=== PATIENT | female | born 1990 | race Caucasian/White ===

== ENCOUNTER 2017-08-08 14:10 | Inpatient (IN) | payer MEDICAID ==
--- NOTE | 2017-08-08 14:33 | EDPHY ---
H & P Time Seen by Provider: 08/08/17 14:26 HPI/ROS: CHIEF COMPLAINT: Right-sided abdominal pain HISTORY OF PRESENT ILLNESS: This patient is a 27 year old female with history of PCOS and endometriosis complaining of right sided abdominal pain. She woke at 3am this morning with severe supraumbilical pain radiating towards the right. She tried to have a bowel movement with no relief. She had severe pain lasting 2-3 hours. She was able to fall asleep following this. On waking, she had generalized abdominal soreness. Her pain increases while walking. It does not radiate into her back. She endorses nausea, no vomiting. Last BM was yesterday evening at 6pm. No dysuria or hematuria. She denies any abnormal activities yesterday. She has had a cholecystectomy in the past. Her appendix remains. Mirena IUD in place, no recent menstrual periods. She has history of polycystic ovary syndrome and endometriosis but the pain is not similar to this. She has also had acid reflux since her cholecystectomy and takes omeprazole prn, but her discomfort is not similar to this either. No fever, chest pain, shortness of breath, or other associated symptoms. REVIEW OF SYSTEMS: A 10 point review of systems was performed and is negative with the exception of the elements mentioned in the history of present illness. Past Medical/Surgical History: Endometriosis Polycystic ovary syndrome GERD (Omeprazole prn) Mirena IUD in place. 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 Lives in [place]. Single. Smoking Status: Light smoker Physical Exam: General Appearance: Alert, pleasant Eyes: Pupils equal and round, no conjunctival pallor or injection ENT, Mouth: Mucous membranes moist Neck: Normal inspection Respiratory: Lungs are clear to auscultation Cardiovascular: Regular rate and rhythm Gastrointestinal: Right upper greater than lower quadrant tenderness. No adnexal tenderness. Abdomen is soft. Neurological: A&O, nonfocal exam Skin: Warm and dry, no rash Extremities: Nontender, no pedal edema Psychiatric: Mood and affect normal Constitutional: Initial Vital Signs Temperature (C) 36.5 C 08/08/17 14:14 Heart Rate 105 H 08/08/17 14:14 Respiratory Rate 17 08/08/17 14:14 Blood Pressure 153/110 H 08/08/17 14:14 O2 Sat (%) 95 08/08/17 14:14 O2 Delivery Mode Room Air Allergies/Adverse Reactions: No Known Allergies Allergy (Verified 08/08/17 14:14) Home Medications: Medication Instructions Recorded Omeprazole 20 mg PO DAILY 08/08/17 Acetaminophen [Tylenol ES 500 mg 1,000 mg PO Q8 tab 08/09/17 (*)] HYDROmorphone HCL [Dilaudid 2 mg 2 mg PO Q4H PRN #15 tab 08/09/17 (*)] Ketorolac Tromethamine 10 mg PO Q6H #16 tab 08/09/17 Medical Decision Making - Diagnostics Imaging Results: Abdomen CT 08/08/17 15:19 Impression: 1. Nonspecific thickening of the diameter of the appendix up to 12 mm with central gas and no evidence of periappendiceal inflammatory changes. Although the diameter is enlarged, there is no evidence of appendiceal edema or periappendiceal inflammatory changes to suggest appendicitis. Consider surgical consult. 2. Prior cholecystectomy without biliary obstruction. 3. Hepatic granulomata. 4. No bowel obstruction, urinary tract obstruction, fluid collections, or adnexal masses. Findings and recommendations discussed with Emergency Department physician, Daysi Herrera at 1604 hour, 08/08/2017. Final report concurs with initial preliminary interpretation. Cosign: Dr. Marcelo Dalton. Imaging: Discussed imaging studies w/ physical sciences instructor Radiologist ED Course/Re-evaluation: 27 y/o female presents with right-sided abdominal pain onset this morning around 3am, 11 hours prior to arrival. Exam reveals right upper greater than lower quadrant tenderness, no adnexal tenderness. Plan for labs including CBC, chemistries, liver, lipase, BHCG. Plan for CT abdomen/pelvis. IV established. Plan to administer 6mg IV morphine, 4mg IV Zofran, and 1L IV NS for symptom relief. 16:[address] Lundy, radiologist. CT questionable for appendicitis. Reassessed patient. Discussed imaging results. Pt continues have right sided abd pain. She is feeling better following morphine administration. She continues to have a pressure sensation but less intense discomfort. Abd: RUQ/RLQ tenderness. Plan to consult with Dr. Tloentino, general surgeon artist color separation. 16:[address] Tolentino, general surgeon. 16:30 Dr. Tolentino at bedside. 17:[address] Tolentino, who has assessed the patient. 17:43 Discussion admission vs f/u 12 hrs recheck. The patient prefers to be admitted for further observation. Differential Diagnosis: Differential diagnosis includes though it is not limited to appendicitis, cholecystitis, diverticulitis, pyelonephritis, bowel perforation, small bowel obstruction. - Data Points Laboratory Results: Laboratory Results 08/09/17 04:15 08/09/17 04:15 Medications Given: Discontinued Medications Acetaminophen (Tylenol) 1,000 mg PO Q8 VENKAT Stop: 02/04/18 21:59 Last Admin: 08/10/17 06:03 Dose: 1,000 mg Cefazolin Sodium (Ancef Syringe) Confirm Administered Dose 2 gm .ROUTE .STK-MED ONE Stop: 08/09/17 11:42 Last Admin: 08/09/17 13:14 Dose: 1 gm Ertapenem (Invanz) 1 gm IVP ONCALL ONE PRN Reason: Protocol Stop: 08/09/17 11:12 Last Admin: 08/09/17 14:22 Dose: Not Given Fentanyl (Sublimaze) 25 - 100 mcg IVP Q5M PRN PRN Reason: PACU, IMMEDIATE Pain control Stop: 08/09/17 14:45 Last Admin: 08/09/17 14:56 Dose: 50 mcg Heparin Sodium (Porcine) (Heparin Sc Injection) Confirm Administered Dose 10, 000 unit .ROUTE .STK-MED ONE Stop: 08/09/17 11:41 Last Admin: 08/09/17 13:14 Dose: 5,000 unit Hydromorphone HCl (Dilaudid) 0.2 - 0.4 mg IVP Q1HR PRN PRN Reason: Pain, Severe Unable to Take PO Stop: 08/18/17 23:43 Last Admin: 08/09/17 18:39 Dose: 0.2 mg Hydromorphone HCl (Dilaudid) 0.1 - 0.4 mg IVP Q10M PRN PRN Reason: PACU, PAIN Stop: 08/09/17 14:45 Last Admin: 08/09/17 15:29 Dose: 0.2 mg Hydromorphone HCl (Dilaudid) 2 mg PO Q4H PRN PRN Reason: PAIN, MODERATE Stop: 08/19/17 19:34 Last Admin: 08/10/17 08:28 Dose: 2 mg Sodium Chloride (Ns) 1,000 mls @ 0 mls/hr IV ONCE ONE; Wide Open PRN Reason: Protocol Stop: 08/08/17 15:30 Last Admin: 08/08/17 15:44 Dose: 1,000 mls Sodium Chloride (Ns) 1,000 mls @ 100 mls/hr IV CONT VENKAT Stop: 08/09/17 17:59 Last Admin: 08/08/17 20:02 Dose: 1,000 mls Lactated Ringer's (Lr) 1,000 mls @ 0 mls/hr IV ONCE ONE PRN Reason: Per Protocol Stop: 08/09/17 12:14 Last Admin: 08/09/17 16:00 Dose: Not Given Influenza Virus Vaccine Quadrival (Fluarix Quad [id number]) 0.5 ml IM .ONCE ONE Stop: 08/09/17 16:31 Last Admin: 08/09/17 18:31 Dose: 0.5 ml Ketorolac Tromethamine (Toradol) 30 mg IVP Q6 VENKAT Stop: 08/13/17 17:59 Last Admin: 08/10/17 04:00 Dose: 30 mg Midazolam HCl (Versed) 2 mg IVP ONCALL ONE Stop: 08/09/17 12:57 Last Admin: 08/09/17 13:10 Dose: 2 mg Morphine Sulfate (Morphine) 6 mg IVP EDNOW ONE Stop: 08/08/17 15:20 Last Admin: 08/08/17 18:40 Dose: 6 mg Ondansetron HCl (Zofran) 4 mg IVP EDNOW ONE Stop: 08/08/17 15:20 Last Admin: 08/08/17 15:44 Dose: 4 mg Ondansetron HCl (Zofran) 4 mg IVP Q4HRS PRN PRN Reason: Nausea/Vomiting, Can't Take PO Stop: 02/04/18 17:46 Last Admin: 08/08/17 22:33 Dose: 4 mg Pantoprazole Sodium (Protonix) 40 mg PO DAILY [facility] Stop: 02/05/18 08:59 Last Admin: 08/10/17 08:28 Dose: 40 mg Departure - Departure Disposition: [facility] Inpatient Acute Clinical Impression: Abdominal pain Qualifiers: Abdominal location: right upper quadrant Qualified Code(s): R10.11 - Right upper quadrant pain Condition: Fair Report Scribed for: Daysi Herrera Report Scribed by: Euegnia Blanc Date of Report: 08/08/17 Time of Report: 14:33 Physician Review and Approval Statement: 08/08/17 14:33 Portions of this note were transcribed by a biomedical engineering internship. I personally performed a history, physical exam, medical decision making, and confirmed accuracy of information the transcribed note.
[2017-08-08 15:05] LABS: PLATELET COUNT 249 10^3/uL (150-400)
[2017-08-08] MEDS ORDERED: ONDANSETRON 4 MG/2 ML VIAL IVP ONE (15:19)
[2017-08-08] MEDS ORDERED: IOPAMIDOL (ISOVUE-300) 100 ML BTL ONE (15:27)
[2017-08-08] MEDS ORDERED: NS 1,000 ML IV ONE (15:29)
[2017-08-08] MEDS ORDERED: ONDANSETRON 4 MG/2 ML VIAL IVP PRN (17:47)
[2017-08-08] MEDS ORDERED: NS 1,000 ML IV SCH (18:00)
--- NOTE | 2017-08-08 18:34 | GHP ---
[f rep st] PREOP HISTORY AND PHYSICAL DATE OF ADMISSION: 08/08/2017 ADMITTING DIAGNOSES: 1. Abdominal pain. 2. Mesenteric adenitis. 3. Appendicolith. 4. Thickened colonic wall. HISTORY: The patient is a 27-year-old white female who was in her usual state of good health when aniyah sims went to bed last night at 10:30. At 3 a.m., she awoke with a sharp, shooting pain just above her u mbilicus. This lasted for approximately 2-3 hours. She then was able to go to sleep. When she woke up this morning, she complained that her whole abdomen was sore, as if she had done multiple sit-ups . The abdominal discomfort then went from diffuse to right lower quadrant. She did have nausea and did not have breakfast. Her last bowel movement was at 5:30 last night. She generally moves her bow els twice a day. She has had no stool since that time. She has chronic allergies, but no true recen t upper respiratory tract infection. She chronically has diarrhea on and off. She has not had any t ravel outside the [place] in the last 6 months or antibiotic use. There is no family or person al history of inflammatory bowel disease. PAST MEDICAL HISTORY: She smokes approximately a quarter to a half-a-pack cigarettes a day. She dri nks approximately 2 bottles of wine per week. ALLERGIES: She has no known drug allergies. MEDICATIONS: She takes Prilosec 20 mg daily for reflux. PAST SURGICAL HISTORY: She has had a cholecystectomy. There is no history of rheumatic fever, tuberculosis, hepatitis, or transfusions. REVIEW OF SYSTEMS: She has hayfever on a year-round basis. She is known to have an IUD in place. S he does not know when her last menstrual cycle was. Review of systems otherwise quite negative. The re are no limits on her activities. No history of steroid use. PHYSICAL EXAMINATION: GENERAL: She is awake and alert, sitting up, speaking to me without obvious p ain. LYMPH NODES: There is no cervical, supraclavicular, axillary or inguinal lymphadenopathy. JEFFREY NT: Her skull is normocephalic and atraumatic. GENERAL: She is alert and oriented to person, place , and time. NECK: I do not appreciate any carotid bruits or thyroid enlargement. BACK: Is unremar kable. LUNGS: Clear to auscultation. CHEST: Her chest is stable to AP and lateral compression. C ARDIAC: Shows S1, S2 to be normal with no split of S2, without murmurs, rubs, or gallops. ABDOMEN: She is tender with cough at a 4 on a scale of 1-10 in the right midabdomen. Psoas and obturator sig ns are negative. She has normoactive bowel sounds. Her left upper quadrant is 1 on a scale of 1-10, left midabdomen is 1, left lower quadrant is 1, epigastrium is 1, periumbilical area is 1, suprapubi c area is 1, right upper quadrant is 2, over the right iliac crest it is 2-3, right midabdomen it is 4, right lower quadrant is 1. LABORATORY DATA: Her white blood count is 7.8, with 76% neutrophils. Hematocrit is 47.5, platelets are 249. Her AST is 74 and ALT is 120. Her CAT scan does show some mesenteric adenitis. It does show what appears to be an appendicolith. There is no periappendiceal stranding or wall thickening. There is no fluid in the pelvis. An IUD i s in place. The colon is generally collapsed and the wall appears to be somewhat thickened. IMPRESSION: Abdominal pain, etiology unclear. I am unsure if this is an intermittent appendiceal blockage because of the appendicolith, or whether this is the mesenteric adenitis, or whether this is a low-grade inflammatory bowel process, or if thi s is a chronic enteritis. I will admit to the hospital for observation, hydration, and pain control. Followup laboratories will be obtained in the morning. /[id number]/MODL
[2017-08-08] MEDS: KETOROLAC 30 MG/1 ML SDV IVP SCH (20:03)
[2017-08-08] MEDS: ACETAMINOPHEN 500 MG TAB PO SCH (23:45)
[2017-08-08] MEDS: HYDROmorphONE/DILAUDID 1 MG/ML INJ IVP PRN (23:51)
[2017-08-09] MEDS: KETOROLAC 30 MG/1 ML SDV IVP SCH ×4 (02:04→21:58)
[2017-08-09] MEDS: HYDROmorphONE/DILAUDID 1 MG/ML INJ IVP PRN ×7 (04:05→18:39)
[2017-08-09 04:33] LABS: PLATELET COUNT 186 10^3/uL (150-400)
[2017-08-09] MEDS: ACETAMINOPHEN 500 MG TAB PO SCH ×3 (07:40→21:58)
[2017-08-09] MEDS: PANTOPRAZOLE SODIUM 40 MG TAB PO SCH (07:40)
[2017-08-09] MEDS ORDERED: NON-FORMULARY NEW DRUG (Omeprazole [Omeprazole] 20 MG) PO SCH (09:00)
[2017-08-09] MEDS ORDERED: ERTAPENEM 1 GM VIAL IVP ONE (11:11)
--- NOTE | 2017-08-09 11:15 | TRAUMAPN ---
Assessment/Plan: PAD#1 08/09/2017 Assessment: Pain continues. Stool evaluation negative.WBC stable. A febrile. Suspect pain is due to partial appendiceal obstruction due to appendicolith. Plan: Because of appendicolith will plan laparoscopic appendectomy to eliminate chance of progression to acute appendicitis Objective: Vital Signs Temp Pulse Resp BP Pulse Ox 36.6 C 54 L 14 103/72 95 08/09/17 07:47 08/09/17 07:47 08/09/17 07:47 08/09/17 07:47 08/09/17 07:47 Microbiology 08/09/17 08:50 Gastrointestinal Tract Panel (PCR) - Final Stool No Organism Detected Laboratory Results 08/09/17 04:15 08/09/17 04:15 08/08/17 08/09/17 08/10/17 05:59 05:59 05:59 Intake Total 1999 Balance 1999 Physical Exam - Physical Exam General Appearance: WD/WN, alert, mild distress Respiratory: chest non-tender, lungs clear, normal breath sounds Cardiac/Chest: regular rate, rhythm Abdomen: other (Hypoactive bowel sounds, Pain 8/10 with cough in right mid abdomen and with palpation) Pelvic Exam: deferred Rectal: deferred Back: Normal inspection Skin: normal color, warm/dry Neuro/Psych: no motor/sensory deficits, alert, normal mood/affect Time Spent w/Patient (minutes): 25
[2017-08-09] MEDS ORDERED: HEPARIN 5,000 UNIT/0.5 ML SYR ONE (11:40)
[2017-08-09] MEDS ORDERED: ceFAZolin 1 GM/5 ML SYR ONE (11:41)
[2017-08-09] MEDS ORDERED: LR 1,000 ML IV ONE (12:13)
[2017-08-09] MEDS ORDERED: fentaNYL 250 MCG/5 ML INJ ONE (12:53)
[2017-08-09] MEDS ORDERED: PROPOFOL 200 MG/20 ML VIAL ONE ×2 (12:53)
[2017-08-09] MEDS ORDERED: LIDOCAINE 2% 5 ML SDV ONE (12:55)
[2017-08-09] MEDS ORDERED: MIDAZOLAM 2 MG/2 ML VIAL IVP ONE (12:56)
--- NOTE | 2017-08-09 12:57 | PDANEPAE ---
ANE History of Present Illness acute appendicitis ANE Past Medical History - Cardiovascular History Hx Hypertension: No Hx Arrhythmias: No Hx Chest Pain: No Hx Coronary Artery / Peripheral Vascular Disease: No Hx CHF / Valvular Disease: No Hx Palpitations: No - Pulmonary History Hx COPD: No Hx Asthma/Reactive Airway Disease: No Hx Recent Upper Respiratory Infection: No Hx Oxygen in Use at Home: No Hx Sleep Apnea: No Sleep Apnea Screening Result - Last Documented: Negative Pulmonary History Comment: DENIES SOB W STAIRS - Neurologic History Hx Cerebrovascular Accident: No Hx Seizures: No Hx Dementia: No - Endocrine History Hx Diabetes: No Hypothyroid: No Hyperthyroid: No Obesity: yes - Renal History Hx Renal Disorders: No - Liver History Hx Hepatic Disorders: No - Neurological & Psychiatric Hx Hx Neurological and Psychiatric Disorders: Yes Neurological / Psychiatric History Comment: ANXIETY - Cancer History Hx Cancer: No - Congenital Disorder History Hx Congenital Disorders: No - GI History GERD: mild Hx Gastrointestinal Disorders: No - Other Health History Other Health History: NA - Chronic Pain History Chronic Pain: Yes - Surgical History Prior Surgeries: NEVER HAD ANE Review of Systems Review of systems is: negative Review of Systems: - Exercise capacity Exercise capacity: >=4 METS ANE Patient History - Allergies Allergies/Adverse Reactions: No Known Allergies Allergy (Verified 08/08/17 14:14) - Home Medications Home medications: home medication list seen and reviewed Home Medications: Omeprazole 20 mg PO DAILY 08/08/17 [Last Taken 08/08/17] - NPO status NPO Since - Liquids (Date): 08/08/17 NPO Since - Liquids (Time): 09:00 NPO Since - Solids (Date): 08/07/17 NPO Since - Solids (Time): 19:00 - Anes Hx Anes Hx: no prior problems - Smoking Hx Smoking Status: Light smoker - Family Anes Hx Family Hx Anesthesia Complications: NONE ANE Labs/Vital Signs - Labs Result Diagrams: 08/09/17 04:15 08/09/17 04:15 - Vital Signs Blood Pressure: 116/77 Heart Rate: 63 Respiratory Rate: 14 O2 Sat (%): 95 Height: 165.1 cm Weight: 90.718 kg ANE Physical Exam - Airway Neck exam: FROM Mallampati Score: Class 1 Mouth exam: normal dental/mouth exam - Pulmonary Pulmonary: no respiratory distress - Cardiovascular Cardiovascular: regular rate and rhythym - ASA Status ASA Status: II ANE Anesthesia Plan Anesthesia Plan: general endotracheal anesthesia
[2017-08-09] MEDS ORDERED: ROCURONIUM 100 MG/10 ML VIAL ONE (12:59)
[2017-08-09] MEDS ORDERED: ONDANSETRON 4 MG/2 ML VIAL IVP PRN (13:45)
[2017-08-09] MEDS ORDERED: OXYCODONE/APAP 5/325 TAB PO PRN (13:45)
[2017-08-09] MEDS ORDERED: LR 500 ML IV PRN (13:45)
[2017-08-09] MEDS ORDERED: METOCLOPRAMIDE 10 MG/2 ML VIAL IVP PRN (13:45)
[2017-08-09] MEDS ORDERED: HYDROCODONE/APAP 5/325 TAB PO PRN (13:45)
[2017-08-09] MEDS ORDERED: ALBUTEROL 3 ML DEYVIAL IH PRN (13:45)
[2017-08-09] MEDS ORDERED: ACETAMINOPHEN 500 MG TAB PO PRN (13:45)
[2017-08-09] MEDS ORDERED: PROMETHAZINE HCL 25 MG/ML INJ IVP PRN (13:45)
[2017-08-09] MEDS ORDERED: NALOXONE HCL 0.4 MG/ML INJ IVP PRN (13:45)
--- NOTE | 2017-08-09 14:40 | POSTOPPROG ---
Post Op Note Date of Operation: 08/09/17 Surgeon: Eduardo Tolentino Anesthesia: GET(General Endotracheal) Pre-op Diagnosis: abdominal pain, appendicolith Post-op Diagnosis: subacute appendicitis with appendicolith Indication: adominal pain Procedure: laparoscopic appendectomy Findings: subacute appendicitis with appendicolith Inf/Abcess present in the surg proc area at time of surgery?: No EBL: Minimal Total fluids administered: 450 Complications: none Specimen(s): appendix
[2017-08-09] MEDS ORDERED: fentaNYL 100 MCG/2 ML INJ ONE (14:43)
--- NOTE | 2017-08-09 14:43 | POSTANESTH ---
Post Anesthetic Evaluation Cardiovascular Status: Normal, Stable Respiratory Status: Normal, Stable Level of Consciousness/Mental Status: Can Participate in Eval Pain Control: Adequate, Prn Tx Ordered Nausea/Vomiting Control: Adequate, Prn Tx Ordered Complications Possibly Related to Anesthesia: None Noted
[2017-08-09] MEDS: fentaNYL 100 MCG/2 ML INJ IVP PRN ×2 (14:44→14:56)
[2017-08-09] MEDS ORDERED: HYDROmorphONE/DILAUDID 1 MG/ML INJ ONE (15:04)
[2017-08-09] MEDS ORDERED: FLU VACC QS 2017-18 (3YR+)/PF 0.5 ML SYR (FLUARIX QUAD) IM ONE (16:30)
[2017-08-09] MEDS: HYDROmorphONE/DILAUDID 2 MG TAB PO PRN ×2 (19:44→23:46)
--- NOTE | 2017-08-10 00:12 | GOP ---
[f rep st] OPERATIVE REPORT DATE OF OPERATION: SURGEON: Eduardo Tolentino MD ANESTHESIA: General endotracheal. PREOPERATIVE DIAGNOSIS: Abdominal pain, appendicolith. POSTOPERATIVE DIAGNOSIS: Subacute appendicitis with appendicolith. PROCEDURE PERFORMED: Laparoscopic appendectomy. FINDINGS: Subacute appendicitis with appendicolith. SPECIMENS: Appendix. ESTIMATED BLOOD LOSS: Minimal. INDICATIONS: Abdominal pain. DESCRIPTION OF PROCEDURE: The patient was placed on the operating table in the supine position. After induction of adequate general endotracheal anesthesia, the abdomen was carefully clipped, prepped, and draped. A surgical time-out was carried out and agreed to by all members of the operative team. The patient has had a previous laparoscopic surgery and the prior umbilical incision was used as a template for her new incision. The skin was sharply incised. Dissection was continued down to the anterior rectus sheath which was elevated between Allis clamps. Rectus sheath was divided in the midline. A careful spreading technique was used to enter the peritoneum. There was no evidence of any bowel adhesion or injury. An 11-12 mm disposable Sumit trocar was positioned. Intra-abdominal insufflation was carried out to 15 mmHg. A 5 mm left lower quadrant and a 5 mm suprapubic incision were both made. 5 mm ports were placed. The patient was placed in a 30-degree Trendelenburg and rotated 5 degrees to the left. The cecum was easily identified. The appendix was somewhat adherent. Adhesions were lysed with the Harmonic Scalpel. The appendix was cleared circumferentially at its base and dissection was then continued down along the mesenteric side of the appendix using Harmonic Scalpel. The appendix was transected at its base including a cuff of cecum with a powered 35 mm Endo-SWAPNA stapler using a vascular load. The appendix was placed in an EndoCatch bag and removed through the umbilical port site. Irrigation was carried out with heparin and Ancef containing irrigant. Hemostasis was excellent. The small bowel was run for a distance of 3 feet. There was no mesenteric adenitis identified. There was no Meckel diverticulum noted. The pelvis was well irrigated. It was difficult to visualize her ovaries, but no abnormalities were appreciated. Ports were then removed under direct vision. At the umbilical site, a simple [id number] stitch of 0 PDS was placed at the midpoint in the fascia. The pursestring was tied 1st, then the simple [id number] stitch was tied. The subcutaneous tissue was well irrigated. Hemostasis was excellent. All skin incision were closed with inverted simple sutures of #4-0 Vicryl. Mastisol, Steri-Strips, and Band-Aids were placed. The patient tolerated the procedure well, was transferred to recovery in stable and satisfactory condition. FLUIDS: 450 cc. COMPLICATIONS: None. /[id number]/MODL MTDD
[2017-08-10 01:02] VITALS: RESP 16; O2SAT 96
[2017-08-10] MEDS: KETOROLAC 30 MG/1 ML SDV IVP SCH (04:00)
[2017-08-10] MEDS: HYDROmorphONE/DILAUDID 2 MG TAB PO PRN ×2 (04:00→08:28)
[2017-08-10] MEDS: ACETAMINOPHEN 500 MG TAB PO SCH (06:03)
--- NOTE | 2017-08-10 07:37 | SOAPPROG ---
SOAP Progress Note Assessment/Plan: Assessment/Plan PAD#1 08/09/2017 Assessment: Pain continues. Stool evaluation negative.WBC stable. A febrile. Suspect pain is due to partial appendiceal obstruction due to appendicolith. Plan: Because of appendicolith will plan laparoscopic appendectomy to eliminate chance of progression to acute appendicitis POD#1 Assessment: Doing well. Eating. Passing flatus. Pain well controlled. Plan: discharge Subjective: No complaints Objective: Vital Signs Temp Pulse Resp BP Pulse Ox 36.2 C 58 L 16 106/73 96 08/10/17 04:00 08/10/17 04:00 08/10/17 04:00 08/10/17 04:00 08/10/17 04:00 08/09/17 08/10/17 08/11/17 05:59 05:59 05:59 Intake Total 280 Output Total 5 Balance 275 - Time Spent With Patient Time Spent With Patient: 15 Physical Exam - Physical Exam General Appearance: WD/WN, alert, no apparent distress Respiratory: chest non-tender, lungs clear, normal breath sounds Cardiac/Chest: regular rate, rhythm Abdomen: normal bowel sounds, non-tender, soft Pelvic Exam: deferred Rectal: deferred Back: Normal inspection Skin: normal color, warm/dry Neuro/Psych: alert, normal mood/affect, oriented x 3 ICD10 Worksheet Patient Problems: Problems Problem Status Onset Abdominal pain Acute Appendicolith Acute Mesenteric adenitis Acute
[2017-08-10 07:43] VITALS: BP 97/71; PULSE 59; TEMP 97.6
[2017-08-10] MEDS: PANTOPRAZOLE SODIUM 40 MG TAB PO SCH (08:28)
--- NOTE | 2017-08-10 12:20 | GDS ---
[f rep st] DISCHARGE SUMMARY DISCHARGE DIAGNOSIS: Subacute appendicitis with appendicolith, pathology pending. CONDITION ON DISCHARGE: Improved, DISPOSITION: Home. DIET: Regular diet. I have suggested that she avoid constipating foods such as bananas, rice, apple sauce, and cheese. DISCHARGE MEDICATIONS: Tylenol 1000 mg every 8 hours, Toradol 10 mg every 6 hours, Dilaudid 2 mg quyen ry 4 hours as needed for breakthrough pain. ACTIVITY: Limitations for the next 2 weeks, she is to shower only, keep her Steri-Strips in place. Lift less than 10 pounds. She is also to take a multivitamin with zinc, copper and C. She is going to watch for signs of infection. Superficial infections will be manifested by redness, swelling, war mth and tenderness. Deep infections by fevers, chills, general malaise, lack of appetite, and abdomi nal pain. FOLLOWUP: She will follow up with Dr. Ashvin Edmondson, Dr. Jhoana Kellogg or Dr. Nakul Louis in the n ext 10 days. She will return to work on the . HOSPITAL COURSE: The patient was admitted for observation because of unclear etiology. Her pain con tinued. Stool evaluation was negative. I opted to perform a laparoscopic appendectomy which has dram atically improved her pain score. I did not identify mesenteric adenitis. There was no evidence of a Meckel's diverticulum. There was no evidence of inflammatory bowel disease. She will be just discharged today, postoperative day #1. /[id number]/MODL
== END 2017-08-10 08:45 | disposition home or self-care (01) | DRG 343 ==
LOC: FOB 19:13 → OBSVTOIN 08-09 14:37
PROVIDERS: ADMIT Surgery; ATTEND Surgery
PROC: 0DTJ4ZZ Resection of Appendix, Percutaneous Endoscopic Approach (ICD-10-PCS; principal; 2017-08-09 12:45)
DX: K36 Other appendicitis (principal); K21.9 Gastro-esophageal reflux disease without esophagitis; E28.2 Polycystic ovarian syndrome; Z23 Encounter for immunization; Z97.5 Presence of (intrauterine) contraceptive device; Z72.0 Tobacco use
CPT/HCPCS: G0008; G0378; J1170; J1335; J1885; J2250; J2405; J2704; J3010; Q9967

== ENCOUNTER → 2018-01-11 | Outpatient (CLI) | payer OTHER | LOC: FIMAGING 15:50 | PROVIDERS: ATTEND Obstetrics & Gynecology | DX: M79.672 Pain in left foot (principal) ==

== ENCOUNTER → 2018-08-19 | Outpatient (CLI) | payer OTHER | LOC: FIMAGING 09:27 | PROVIDERS: ATTEND Advanced Practice Midwife | DX: O34.81 Maternal care for other abnormalities of pelvic organs, first trimester (principal); N83.292 Other ovarian cyst, left side; Z3A.12 12 weeks gestation of pregnancy ==

== ENCOUNTER 2018-12-11 19:37 | Observation (INO) | payer OTHER ==
--- NOTE | 2018-12-11 20:10 | PDGENHP ---
History and Physical History and Physical: Care: [facility] HPI: Glenda Goodwin is a 28yo with IUP@ 28-0 weeks that presents to L&D with complaints of decreased FM all day, despite eating, drinking cold water, and ambulating. She denies any contractions, but reports cramping with radiation to her back. She denies any LOF, vaginal d/c changes, VB. She has been well hydrated. EDC: 03/03/2019 which is based on LMP which is known and consistent with Ultrasound at 7weeks. Her is complicated by: BMI 37, migraines with aura, abnormal 1hr- 3hr GTT NL Review of Systems: Constitutional: Denies any fever, chills, or fatigue HEENT: denies any visual changes, difficulty swallowing, hearing loss Cardiovascular: Denies any chest pain, palpitations, leg swelling Respiratory: denies any cough, wheezing, or shortness of breathe GI: Denies any nausea, vomiting, diarrhea, constipation : denies any dysuria, urgency, frequency, vaginal bleeding Musculoskeletal: denies any muscle or bone pain Skin: denies any rashes Neuro: denies any headache, seizures, lightheadedness, dizziness, or loss of consciousness Psychiatric: denies any depression, anxiety, or SI/HI thoughts HISTORY: Previous OB history: G1 Past medical history: migraines with aura, PCOS Past surgical history: laparoscopy 2013, cholecystectomy 2013, appendectomy 2016 Social: Denies any alcohol, tobacco, or drug use. Family history: Not relevant Medications: PNV, celexa, omeprazole Allergies (list reaction): NKDA LABS: Rh: O+ ABS: Neg Rubella: Immune HbsAg: NR HIV: NR VDRL: NR 1hr: 179- 3hr GTT NL GC: Neg Chlamydia: Neg Pap: Normal GBS: unknown PHYSICAL EXAM: Constitutional: WN, A&Ox3 HEENT: normocephalic atraumatic, supple Skin: Warm, dry, intact Heart: RRR, no murmur Chest: CTA-B Abdomen: Soft, nontender, gravid SVE: cl/th/high Extremities: no edema, negative homans sign Neuro: grossly normal Psych: normal affect assessment: FHT baseline 130 +accels, no decels, moderate variability Contractions: toco none Assessment: * [id number] with IUP@ 28-0wks * no evidence of PTL * +FM noted * CL 3.83 cm * cat 1 FHR tracing Plan: * d/c home at this time * [facility]KC discussed in great detail * will keep next sched appt * PTL prec discussed Today's visit was approximately 45 min, of which >50% of visit 30 min, was spent face to face with pt on direct counseling/coordination of care.
== END 2018-12-11 21:30 | disposition home or self-care (01) ==
LOC: FLD 19:37
PROVIDERS: ADMIT Advanced Practice Midwife; ATTEND Advanced Practice Midwife
DX: O36.8120 Decreased fetal movements, second trimester, not applicable or unspecified (principal); Z3A.28 28 weeks gestation of pregnancy
CPT/HCPCS: 59025; 76815; G0378